=== PATIENT | female | born 1945 | race Caucasian/White ===

== ENCOUNTER 2018-06-17 13:27 | Emergency (ER) | payer MEDICARE, OTHER ==
[2018-06-17 14:51] LABS: BASOPHILS % (AUTO) 0.6 %; EOSINOPHILS # (AUTO) 0.4 10^3/uL (0.0-0.7); EOSINOPHILS % (AUTO) 5.7 %; HGB - HEMOGLOBIN 12.8 g/dL (12.0-16.0); LYMPHOCYTES # (AUTO) 0.9 10^3/uL (1.5-3.5); LYMPHOCYTES % (AUTO) 13.6 %; MEAN CORPUSCULAR HEMOGLOBIN 30.3 pg (27.0-31.0); MEAN CORPUSCULAR HGB CONC 33.2 g/dL (32.0-36.0); MEAN CORPUSCULAR VOLUME 91.2 fL (81.0-99.0); MEAN PLATELET VOLUME 10.4 fL (7.9-10.8); MONOCYTES # (AUTO) 0.7 10^3/uL (0.0-1.0); MONOCYTES % (AUTO) 9.8 %; NEUTROPHILS # (AUTO) 4.7 10^3/uL (1.5-6.6); NEUTROPHILS % (AUTO) 70.3 %; PLT - PLATELET COUNT 141 10^3/uL (130-450); RED BLOOD COUNT 4.23 10^6/uL (4.20-5.40); RED CELL DISTRIBUTION WIDTH 15.4 % (12.0-15.0); WHITE BLOOD COUNT 6.7 x10^3/uL (4.8-10.8)
--- NOTE | 2018-06-17 15:17 | CT Report ---
Reason: abd pain NV Procedure Date: 06/17/2018 Accession Number: [id number] / [id number] Procedure: CT - Abdomen/Pelvis W/O CPT Code: FULL RESULT: EXAM: CT ABDOMEN AND PELVIS EXAM DATE: 06/17/2018 02:53 PM. CLINICAL HISTORY: Abd pain NV. COMPARISONS: None. TECHNIQUE: Routine helical CT imaging was performed through the abdomen and pelvis. IV contrast: None12. Enteric contrast: No. Reconstructions: Coronal and sagittal. In accordance with CT protocol optimization, one or more of the following dose reduction techniques were utilized for this exam: automated exposure control, adjustment of mA and/or KV based on patient size, or use of iterative reconstructive technique. FINDINGS: Lung Bases: Unremarkable. Liver: Negative for the noncontrast technique. Gallbladder/Bile Ducts: Cholelithiasis with layering stones and distended gallbladder Spleen: Normal. Pancreas: Normal. Adrenal Glands: Normal. Kidneys: No masses, stones, or hydronephrosis. Peritoneal Cavity/Bowel: No free fluid or free air. 1.5 x 1.3 cm lymph node anterior left abdomen 3: 20 No masses or acute inflammatory process. The appendix is well visualized and normal. Pelvic Organs: The bladder is unremarkable. The uterus is not seen. Vasculature: No aneurysms or other significant abnormality. Bones: Degenerative change in the spine. Thoracolumbar junction levoscoliosis. Other: None. IMPRESSION: Cholelithiasis with distended gallbladder. Otherwise negative for potentially acute findings abdomen and pelvis. RADIA
[2018-06-17 15:41] LABS: ALBUMIN 3.8 g/dL (3.2-5.5); ALBUMIN/GLOBULIN RATIO 1.2 (1.0-2.2); BILIRUBIN,TOTAL 0.7 mg/dL (0.2-1.0); CALCIUM 8.8 mg/dL (8.5-10.3); CREATININE 1.4 mg/dL (0.4-1.0); TOTAL PROTEIN 7.1 g/dL (6.7-8.2)
--- NOTE | 2018-06-17 16:17 | ED Physician Documentation ---
History of Present Illness - Stated complaint Stated Complaint: VOMITING/DIZZY - Chief complaint Chief Complaint: Abd Pain - Additonal information Additional information: hx from pt and caregiver 72 female pmhx DM HTN HLD CRI to ED with several complaints - intermittent headaches, intermittant wekaneness, intermittant vague upper abdominal pain, intermittant NV for about 2 weeks no fever no diarrhea no new urinary sx knows she has gallstones but pain not clearly related to eating no abd pain or CONTE right now Review of Systems Constitutional: reports: Fatigue. denies: Fever, Chills Throat: denies: Sore throat Cardiac: denies: Chest pain / pressure Respiratory: denies: Dyspnea GI: reports: Abdominal Pain, Nausea, Vomiting. denies: Diarrhea : denies: Dysuria Musculoskeletal: denies: Back pain Endocrine: denies: Easy bruising / bleeding Immunocompromised: denies: Immunocompromised PD PAST MEDICAL HISTORY - Past Medical History Past Medical History: Yes Cardiovascular: Hypertension, High cholesterol Endocrine/Autoimmune: Type 2 diabetes : Renal insuffiency HEENT: Glaucoma Musculoskeletal: Chronic back pain - Past Surgical History Past Surgical History: Yes Ortho: Knee replacement /DESIGN TECHNICIAN: Hysterectomy - Present Medications Home Medications: Ambulatory Orders Medication Instructions Recorded Confirmed Atorvastatin Calcium 40 mg PO QDBREAKFAST 12/07/17 06/17/18 Insulin Aspart [Novolog Flexpen] 8 - 10 unit SUBQ AC 12/07/17 06/17/18 Latanoprost 2.5 ml EACHEYE QPM 12/07/17 06/17/18 Warfarin Sodium 2.5 mg PO DAILY 12/07/17 06/17/18 Cephalexin [Keflex] 500 mg PO Q6H #28 capsule 06/17/18 Donepezil HCl 10 mg PO DAILY 06/17/18 06/17/18 Gabapentin 100 mg PO BID 06/17/18 06/17/18 Sertraline [Zoloft] 50 mg PO DAILY 06/17/18 06/17/18 Sodium Bicarbonate 650 mg PO DAILY 06/17/18 06/17/18 - Allergies Allergies/Adverse Reactions: Allergies Allergy/AdvReac Type Severity Reaction Status Date / Time codeine AdvReac Nausea Verified 06/17/18 13:48 - Social History Does the pt smoke?: No Smoking Status: Never smoker PD ED PE NORMAL - Vitals Vital signs reviewed: Yes - General General: No: Alert and oriented X 3 (confused - caregiver states alzhemimers) - HEENT HEENT: PERRL - Neck Neck: Supple, no meningeal sign - Cardiac Cardiac: RRR - Respiratory Respiratory: No respiratory distress, Clear bilaterally - Abdomen Abdomen: Soft, Non tender - Derm Derm: Normal color - Neuro Neuro: Other (awke alert cooperative). No: Alert and oriented X 3 Results - Vitals Vitals: Vital Signs - 24 hr 06/17/18 06/17/18 13:39 17:10 Temperature 36.3 C L Heart Rate 87 82 Respiratory 20 16 Rate Blood Pressure 136/68 H 128/74 O2 Saturation 97 96 Oxygen O2 Source Room air - Labs Labs: Laboratory Tests 06/17/18 06/17/18 06/17/18 14:40 15:22 15:22 WBC 6.7 RBC 4.23 Hgb 12.8 Hct 38.5 MCV 91.2 MCH 30.3 MCHC 33.2 RDW 15.4 H Plt Count 141 MPV 10.4 Neut # (Auto) 4.7 Lymph # (Auto) 0.9 L Wheeler # (Auto) 0.7 Eos # (Auto) 0.4 Baso # (Auto) 0.0 Absolute Nucleated RBC 0.00 Nucleated RBC % 0.0 Sodium 142 Potassium 3.5 Chloride 106 Carbon Dioxide 25 Anion Gap 11.0 BUN 34 H Creatinine 1.4 H Estimated GFR (MDRD) 37 L Glucose 80 Calcium 8.8 Total Bilirubin 0.7 AST 44 H ALT 44 Alkaline Phosphatase 132 H Troponin I < 0.04 Total Protein 7.1 Albumin 3.8 Globulin 3.3 Albumin/Globulin Ratio 1.2 Lipase 164 H Urine Color Urine Clarity Urine pH Ur Specific [place] Urine Protein Urine Glucose (UA) Urine Ketones Urine Occult Blood Urine Nitrite Urine Bilirubin Urine Urobilinogen Ur Leukocyte Esterase Urine RBC Urine WBC Ur Squamous Epith Cells Urine Bacteria Ur Microscopic Review Urine Culture Comments 06/17/18 15:50 WBC RBC Hgb Hct MCV MCH MCHC RDW Plt Count MPV Neut # (Auto) Lymph # (Auto) Wheeler # (Auto) Eos # (Auto) Baso # (Auto) Absolute Nucleated RBC Nucleated RBC % Sodium Potassium Chloride Carbon Dioxide Anion Gap BUN Creatinine Estimated GFR (MDRD) Glucose Calcium Total Bilirubin AST ALT Alkaline Phosphatase Troponin I Total Protein Albumin Globulin Albumin/Globulin Ratio Lipase Urine Color YELLOW Urine Clarity CLOUDY Urine pH 5.5 Ur Specific [place] 1.010 Urine Protein NEGATIVE Urine Glucose (UA) NEGATIVE Urine Ketones NEGATIVE Urine Occult Blood TRACE-LYSE Urine Nitrite POSITIVE H Urine Bilirubin NEGATIVE Urine Urobilinogen 0.2 (NORMAL) Ur Leukocyte Esterase LARGE H Urine RBC 0-5 Urine WBC >25 H Ur Squamous Epith Cells FEW Squamous Urine Bacteria Many H Ur Microscopic Review INDICATED Urine Culture Comments INDICATED - Rads (name of study) CT AP Radiology: See rad report (cholelithiasis, distended GB, no duct dilitation, no pericholecystic fluid) PD MEDICAL DECISION MAKING - ED course ED course: CT shows gallstones (pt already knows) but not c/w acute pola, no pericholecystic fluid, nl ducts lipase midlly elev but nl pancreas on CT does have a UTIK which could explain msot sx (CONTE weakness NV etc) will tx with keflex and dc referral to gen surg to discuss gallstones clear liquid diet X 2 days to rest pancreas WBPT 3.7 but lab states strips are inaccurate and giving high readings Departure - Departure Disposition: 01 Home, Self Care Clinical Impression: Gallstones, Renal insufficiency UTI (urinary tract infection) Qualifiers: Urinary tract infection type: acute cystitis Hematuria presence: without hematuria Qualified Code(s): N30.00 - Acute cystitis without hematuria Condition: Good Instructions: ED Gallstone W Biliary Colic, ED UTI Cystitis Female Follow-Up: Francesca Yu PA-C [Primary Care Provider] - Jadon Carroll MD [Provider Admit Priv/Credential] - Prescriptions: Cephalexin [Keflex] 500 mg PO Q6H #28 capsule Comments: The blood work were fine except for the known renal insufficiency and a slightly elevated lipase level (measures pancreas function) The potassium is 3.5 today which is fine There is a urine infection which could be causing many of your symptoms The CT showed gallstones but no gallbladder infection. The liver pancreas kidneys and appendix looked fine on CT I think it is OK to go home on antibiotics for the urine infection Recommend a clear liquid diet for two days to rest the pancreas. And I have referred you to the surgical clinic to discuss the gallstones The ER staff will call you if the urine culture indicates a need to change antibiotics. Return if worse You will need to monitor your coumadin levels carefully while on antibiotics - I picked keflex because it does not effect the INR as much as other antibiotics - but close follow up with your PMD is very important Discharge Date/Time: 06/17/18 17:32
[2018-06-17 16:25] LABS: BILIRUBIN,URINE NEGATIVE (NEGATIVE); GLUCOSE, URINE (UA) NEGATIVE (NEGATIVE); KETONES,URINE (UA) NEGATIVE (NEGATIVE); LEUKOCYTE ESTERASE, URINE LARGE (NEGATIVE); NITRITE,URINE POSITIVE (NEGATIVE); OCCULT BLOOD,URINE TRACE-LYSE (NEGATIVE); PH,URINE 5.5 PH (5.0-7.5); PROTEIN,URINE NEGATIVE (NEGATIVE); UROBILINOGEN,URINE 0.2 (NORMAL) E.U./dL (NORMAL)
[2018-06-17 16:26] LABS: CLARITY,URINE CLOUDY (CLEAR)
[2018-06-17 16:36] LABS: BACTERIA,URINE Many /HPF (None Seen); RBC,URINE 0-5 /HPF (0-5); SQUAMOUS EPITHELIAL CELL,UR FEW Squamous (<= Few)
[2018-06-17 17:27] VITALS: BP 128/74
== END 2018-06-17 17:32 | disposition home or self-care (01) ==
LOC: ED 13:27
DX: K80.80 Other cholelithiasis without obstruction (principal); N28.9 Disorder of kidney and ureter, unspecified; N30.00 Acute cystitis without hematuria; R74.8 Abnormal levels of other serum enzymes; E11.9 Type 2 diabetes mellitus without complications; Z79.4 Long term (current) use of insulin; I10 Essential (primary) hypertension; E78.5 Hyperlipidemia, unspecified; Z96.659 Presence of unspecified artificial knee joint; Z79.01 Long term (current) use of anticoagulants
CPT/HCPCS: 36415; 74176; 80053; 81001; 81003; 83690; 84484; 85025; 85610; 87086; 87181; 99283